=== PATIENT | male | born 1945 | race African-American/Black ===

== ENCOUNTER 2023-07-15 15:01 | Outpatient (AMB) | payer MEDICARE, OTHER, SELFPAY ==
[2023-07-15 15:05] VITALS: BP 112/74; PULSE 62; O2SAT 97; BMI 35.4
--- NOTE | 2023-07-15 15:05 | A.OFFVIS_ITS ---
Intake Vital Signs 07/15/23 15:05 Height 6 ft 2 in Weight 276 lb BMI 35.4 BP 112/74 Blood Pressure Location Lt brachial Position Sitting Pulse 62 Pulse Source Pulse Oximeter Pulse Oximetry (%) 97 Oxygen Delivery Method Room Air Intake Visit Reasons: Restrictive Lung Diesease Intake Note: pt is here today for breathing issues [employer] Driver Required: No Allergies acetaminophen [From Percocet] Allergy (Severe, Verified 07/15/23 15:10) hives oxycodone [From Percocet] Allergy (Severe, Verified 07/15/23 15:10) hives OSBALDO Inhibitors Adverse Reaction (Severe, Verified 07/15/23 15:10) Cough HPI HPI Comments History of Present Illness Details The patient is here for pulmonary evaluation. The patient is a 78-year-old gentleman known history of COPD in addition to restrictive lung disease. The patient has been followed closely by the [facility]. We do not have any other records at this time. The patient has been doing a little better overall. He was having hard time with the summer. He was using his Anoro inhaler but still having significant audible wheezing and coughing. Moderate severity. He did see his primary care doctor who added Flovent to his regimen and this has been very effective for him. His coughing has improved. Although, he still complains of dyspnea on exertion [id number] severity even with minimal activity. The patient also uses CPAP at nighttime. The CPAP therapy has been affecting beneficial. He does use it every night without any difficulties. Will sent a prescription for continued getting supplies through his [employer] company, [employer] so [employer]. In addition to this the patient was told that he has a problem with his right lung. Appears that his right lower lobe does not inflate. The patient is not clear of the etiology. He is not sure feels the diaphragmatic issue is the lung issue. Most likely sounds like that from diaphragmatic. Will go ahead and request PFTs and chest x-ray. The patient may benefit from a sniff study. Also if he has had any CT scans that will be helpful as well to review. The patient also on exam has a significant systolic ejection murmur radiating to the clavicle into the carotid. Therefore will go ahead and request a echocardiogram at this time. [facility] Medical History (Updated 07/18/23 @ 08:32 by Billy Harper MD) Dyspnea Murmur Asthma-COPD overlap syndrome Social History (Updated 07/15/23 @ 15:12 by Mckenna Miramontes Saeid) Patient Tobacco Use Status: Former Tobacco user Tobacco use type: Cigar Review of Systems Const Denies fever(s) Eyes Reports no additional complaints ENT Reports nasal congestion Card Denies chest pain and Reports dyspnea on exertion Resp Reports cough, Reports dyspnea on exertion and Reports wheezing GI Reports no additional complaints Musc Reports myalgias Skin/Breast Denies rash Neuro Reports no additional complaints Nate/Lymph Denies easy bruising Aller/Immun Reports wheezing Physical Exam Vital Signs: Last Vital Signs Pulse 62 07/15/23 15:05 BP 112/74 07/15/23 15:05 Pulse Ox 97 07/15/23 15:05 Oxygen Delivery Method Room Air 07/15/23 15:05 BMI result Body Mass Index 35.4 Const General: comfortable HEENT Head: Yes normocephalic Eyes General: appearance normal, both eyes and all related structures Neck Neck: Yes supple Chest Chest palpation & inspection: normal inspection of the chest Resp Effort & Inspection: normal respiratory effort and prolonged expiratory phase Auscultation: no rales, no rhonchi, no wheezes and diminished lung sounds Cardio Heart sounds: S1 normal heart sound present, S2 normal heart sound present and Murmur heart sound present GI Palpation (GI): Soft to palpation Skin General skin exam: no rashes or lesions noted Extrem General: No cyanosis Assessment & Plan Assessment & Plan (1) Asthma-COPD overlap syndrome: Code(s): J44.89 - Other specified chronic obstructive pulmonary disease (2) Murmur: Code(s): R01.1 - Cardiac murmur, unspecified (3) Dyspnea: Code(s): R06.00 - Dyspnea, unspecified Qualifiers: Dyspnea type: dyspnea on exertion Qualified Code(s): R06.09 - Other forms of dyspnea Plan Stop Anoro/flovent start Trelegy JOSE as needed PFTs CXR, ?sniff study ECHO F/U 6-8 weeks Orders: Orders XR chest 2V 07/15/23 J44.89 - Other specified chronic obstructive pulmonary disease CA echo transthoracic complete 07/15/23 R01.1 - Cardiac murmur, unspecified PFT pulmonary function test 07/15/23 J44.89 - Other specified chronic obstructive pulmonary disease Medications: New [id number]-[id number] 200-62.5-25 mcg (Trelegy Ellipta) 1 inh inhalation DAILY 30 days 60 ea 12RF Coding Level of Care Code New Pt Level 4 (05640) Diagnoses Asthma-COPD overlap syndrome J44.89 Murmur R01.1 Dyspnea on exertion R06.09 Dyspnea type: dyspnea on exertion Time Spent (min) 40
== END 2023-07-15 15:38 | disposition home or self-care (01) ==
PROVIDERS: PCP Internal Medicine; Referring Provider Internal Medicine; Visit Provider Hospitalist
DX: J44.89 Other specified chronic obstructive pulmonary disease (principal); R01.1 Cardiac murmur, unspecified; R06.09 Other forms of dyspnea
CPT/HCPCS: 99204

== ENCOUNTER → 2023-07-15 15:01 | Outpatient (BNVA) | payer MEDICARE, OTHER, SELFPAY | PROVIDERS: PCP Internal Medicine; Referring Provider Internal Medicine; Visit Provider Hospitalist | DX: J44.89 Other specified chronic obstructive pulmonary disease (principal); R06.09 Other forms of dyspnea; R01.1 Cardiac murmur, unspecified | CPT/HCPCS: 99202 ==

== ENCOUNTER → 2023-08-01 13:21 | Outpatient (REF) | payer MEDICARE, OTHER, SELFPAY ==
--- NOTE | 2023-08-01 13:30 | CA_ITS ---
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 The calculated ejection fraction is 51% by biplane method. - There is moderately increased left ventricular wall thickness. - There is severe calcification of the aortic valve. There is moderate aortic valve stenosis. Findings Procedure Information Contrast agent, definity, is being given per protocol without apparent complications. Left Ventricle Normal left ventricular cavity size. There is moderately increased left ventricular wall thickness. The left ventricular systolic function is mildly decreased. The calculated ejection fraction is 51% by biplane method. There is no evidence of regional wall motion abnormalities. Evidence suggests grade I (mild) diastolic dysfunction. Right Ventricle Normal right ventricular cavity size. There is normal right ventricular systolic function. Atria Both atria are normal in size. Aortic Valve There is severe calcification of the aortic valve. There is moderate aortic valve stenosis. The peak aortic velocity is 3.30 m/s with a calculated peak gradient of 44 mmHg. The mean gradient is 26 mmHg. The aortic valve area is 1.03 cm2. There is no aortic valve regurgitation. Mitral Valve The mitral valve appears normal. There is trace mitral valve regurgitation. There is no mitral valve stenosis. Pulmonic Valve The pulmonic valve is likely normal. Tricuspid Valve Normal tricuspid valve structure. There is mild tricuspid valve regurgitation. There is no evidence of pulmonary hypertension. Great Vessels The asc aorta is normal in size. Venous The inferior vena cava was not well visualized. The inferior vena cava is normal in size. Pericardium/Pleural There is no evidence of pericardial effusion. Prior Study Comparison No prior study available for comparison. Measurements 2D Linear Measurements IVSd: 1.31 0.6-0.9/0.6-1.0 cm LVIDd: 4.41 3.9-5.3/4.2-5.9 cm LVIDd Index: 1.76 2.4-3.2/2.2-3.1 cm/m2 LVIDs: 3.13 2.0-3.6 cm LVPWd: 1.34 0.7-1.1 cm LA Diam: 4.60 2.7-3.8/3.0-4.0 cm LAIDs Index: 1.84 1.5-2.3 cm/m2 LV Mass: 276.77 67-162/88-224 g LV Mass Index: 110.71 43-95/49-115 g/m2 LVOT Diam: 2.10 3.0+(-)1.3 cm 2D Systolic Function EF 4C: 58.00 >55% EF 2C: 42.90 >55% EF BiP: 50.80 >55% Mitral Valve MV Pk E: 0.83 MV PK A: 0.75 MV Decel Time: 273.00 E/A: 1.10 E'Lateral: 8.59 E'Medial: 4.35 E/E' Med: 19.10 E/E' Lat: 9.70 PHT: 80.00 MVA PHT: 2.75 Decel [place]: 3.04 Aortic Valve AoV Pk Bakari: 3.30 AoV Mn Bakari: 2.34 AoV VTI: 0.95 AoV Pk Grad: 44.00 Aov Mn Grad: 26.00 ERICK Cont.VTI: 1.03 LVOT LVOT Pk Bakari: 1.03 LVOT Mn Bakari: 0.70 LVOT VTI: 0.28 LVOT Pk Grad: 4.00 LVOT Mn Grad: 2.00 LVOT Diam: 2.10 LVOT Area: 3.46 Diastolic Function MV Pk E: 0.83 MV Pk A: 0.75 E/A: 1.10 E'Medial: 4.35 E/E' Med: 19.10 E' Laterial: 8.59 E/E' Lat: 9.70 Right Ventricle TAPSE (mm): 20.30 TVS' Bakari: 9.79 Tricuspid Valve TR Pk Bakari: 2.66 TR Pk Grad: 28.00 Great Vessels Aorta Sinus of Valsalva: 2.80 2.0-3.5 cm Ao Asc: 3.20 2.1-3.4 cm Pulmonary Valve PV Pk Bakari: 1.21 Peak PV Grad: 6.00 Updated in Other Vendor System with Status of Final Brent Welch MD electronically signed on 08/02/2023 11:18:57 AM with status of Final
== END ==
LOC: HO.CARD 13:21
PROVIDERS: PCP Internal Medicine; Visit Provider Hospitalist
DX: R01.1 Cardiac murmur, unspecified (principal)
CPT/HCPCS: 93306; Q9957

== ENCOUNTER → 2023-08-01 13:30 | Outpatient (BNV) | payer MEDICARE, OTHER, SELFPAY | PROVIDERS: PCP Internal Medicine; Visit Provider Internal Medicine | DX: I35.0 Nonrheumatic aortic (valve) stenosis (principal) | CPT/HCPCS: 93306 ==

== ENCOUNTER 2023-09-01 14:51 | Outpatient (REF) | payer MEDICARE, OTHER, SELFPAY ==
--- NOTE | 2023-09-01 15:25 | PFT_ITS ---
Flows: FEV1: 106 % of predicted at 2.89 L FVC: 101 % of predicted at 4.41 L FEV1/FVC: 66 % Bronchodilator response: Present in small to medium airways only Volumes: Total lung capacity: 106 % of predicted at 6.80 L Residual volume: 100 % of predicted at 2.45 L Slow vital capacity: 115 % of predicted at 4.35 L Expiratory reserve volume: 70 % of predicted at 0.75 L Diffusion capacity: Normal Impression: Mild obstructive ventilatory defect with bronchodilator response in small to medium airways only. MTDD
== END 2023-09-01 14:52 | disposition home or self-care (01) ==
LOC: HO.RESP 14:51
PROVIDERS: PCP Internal Medicine; Visit Provider Hospitalist
DX: J44.89 Other specified chronic obstructive pulmonary disease (principal)
CPT/HCPCS: 94010; 94727; 94729

== ENCOUNTER → 2023-09-01 15:25 | Outpatient (BNV) | payer MEDICARE, OTHER, SELFPAY | PROVIDERS: PCP Internal Medicine; Visit Provider Internal Medicine Pulmonary Disease | DX: J44.89 Other specified chronic obstructive pulmonary disease (principal) | CPT/HCPCS: 94060; 94727; 94729 ==

== ENCOUNTER 2023-09-20 15:22 | Outpatient (AMB) | payer MEDICARE, OTHER, SELFPAY ==
[2023-09-20 15:32] VITALS: PULSE 89; O2SAT 94; BMI 34.8
--- NOTE | 2023-09-20 15:32 | A.OFFVIS_ITS ---
Intake Vital Signs 09/20/23 15:32 Height 6 ft 2 in Weight 271 lb BMI 34.8 Pulse 89 Pulse Source Pulse Oximeter Pulse Oximetry (%) 94 Oxygen Delivery Method Room Air Intake Visit Reasons: Follow testing PFT, echo,Xray [employer] Operator Required: No Allergies acetaminophen [From Percocet] Allergy (Severe, Verified 09/20/23 15:33) hives oxycodone [From Percocet] Allergy (Severe, Verified 09/20/23 15:33) hives OSBALDO Inhibitors Adverse Reaction (Severe, Verified 09/20/23 15:33) Cough HPI HPI Comments History of Present Illness Details The patient is a 78-year-old gentleman known history of COPD in addition to restrictive lung disease. The patient has been followed closely by the [facility]. We do not have any other records at this time. The patient has been doing a little better overall. He was having hard time with the summer. He was using his Anoro inhaler but still having significant audible wheezing and coughing. Moderate severity. He did see his primary care doctor who added Flovent to his regimen and this has been very effective for him. His coughing has improved. Although, he still complains of dyspnea on exertion [id number] severity even with minimal activity. The patient also uses CPAP at nighttime. The CPAP therapy has been affecting beneficial. He does use it every night without any difficulties. Will sent a prescription for continued getting supplies through his [employer] company, [employer] so [employer]. In addition to this the patient was told that he has a problem with his right lung. Appears that his right lower lobe does not inflate. The patient is not clear of the etiology. He is not sure feels the diaphragmatic issue is the lung issue. Most likely sounds like that from diaphragmatic. Will go ahead and request PFTs and chest x-ray. The patient may benefit from a sniff study. Also if he has had any CT scans that will be helpful as well to review. The patient also on exam has a significant systolic ejection murmur radiating to the clavicle into the carotid. Therefore will go ahead and request a echocardiogram at this time. 09/20/2023 the patient is here for pulmona ry follow-up visit. He continues to have dyspnea on exertion. Moderate severity. Even with minimal activity. The patient did undergo pulmonary function studies which I personally viewed viewed. His total lung capacity decreased down to 44% predicted and also his diffusing capacity also significantly low. Likely a lot related to diaphragmatic injury. Although we will need to do a CT scan of the chest to better address the restrictive process. The patient also may benefit from a sniff study to assess for any diaphragmatic paralysis. Will look at the CAT scan 1st before ordering the sleeves study. The patient also had an echocardiogram for his murmur. It appears a as moderate aortic stenosis with a severely calcified aortic valve. In addition to that he does have evidence of moderate diastolic dysfunction and slight decreased EF of 49%. The patient does have a scheduled appointment with Cardiology back in October. During the visit we did go for 6 minutes walk testing the patient did desaturate down to 88% with activity. The patient was placed on the oxygen 2 L pulse any actually did well maintaining a pulse ox of 96% with activity and he was less breathless. I do believe specially while he is dealing with the valve issue in the restrictive lung disease and his underlying obstructive lung disease to go ahead and start him on oxygen to provide him with some relief of his work of breathing. The patient also has been using the CPAP at night which has been affecting beneficial. He gets [facility]. Therefore will request a conserving device to [facility] as well. The patient will need a small adapter in order to be able to use the oxygen while he sleeps. [facility] Medical History (Updated 09/20/23 @ 21:00 by Billy Harper MD) Chronic hypoxemic respiratory failure Chronic restrictive lung disease Aortic stenosis Dyspnea Murmur Asthma-COPD overlap syndrome Social History (Updated 07/15/23 @ 15:12 by Mckenna Miramontes Saeid) Patient Tobacco Use Status: Former Tobacco user Tobacco use type: Cigar Review of Systems Const Denies fever(s) Eyes Reports no additional complaints ENT Reports nasal congestion Card Denies chest pain and Reports dyspnea on exertion Resp Reports cough, Reports dyspnea on exertion and Reports wheezing GI Reports no additional complaints Musc Reports myalgias Skin/Breast Denies rash Neuro Reports no additional complaints Nate/Lymph Denies easy bruising Aller/Immun Reports wheezing Physical Exam Vital Signs: Last Vital Signs Pulse 89 09/20/23 15:32 Pulse Ox 94 09/20/23 15:32 Oxygen Delivery Method Room Air 09/20/23 15:32 BMI result Body Mass Index 34.8 Const General: comfortable HEENT Head: Yes normocephalic Eyes General: appearance normal, both eyes and all related structures Neck Neck: Yes supple Chest Chest palpation & inspection: normal inspection of the chest Resp Effort & Inspection: normal respiratory effort and prolonged expiratory phase Auscultation: no rales, no rhonchi, no wheezes and diminished lung sounds Cardio Heart sounds: S1 normal heart sound present, S2 normal heart sound present and Murmur heart sound present GI Palpation (GI): Soft to palpation Skin General skin exam: no rashes or lesions noted Extrem General: No cyanosis Office Procedures 6 Minute Walk Time:: 20:59 SPO2 % at rest: 95 Pulse at rest: 90 SPO2 % during excercise: 88 Pulse during excercise: 112 Distance in yards walked: 200 Xavi Score: 7 Supplemental Oxygen: once his pox dropped to 88%, he placed on oxygen 2L/pulse keeping pox 94% with activity [id number] - 6 Minute Walk Assessment & Plan Assessment & Plan (1) Asthma-COPD overlap syndrome: Code(s): J44.89 - Other specified chronic obstructive pulmonary disease (2) Dyspnea: Code(s): R06.00 - Dyspnea, unspecified Qualifiers: Dyspnea type: dyspnea on exertion Qualified Code(s): R06.09 - Other forms of dyspnea (3) Chronic restrictive lung disease: Code(s): J98.4 - Other disorders of lung (4) Chronic hypoxemic respiratory failure: Code(s): J96.11 - Chronic respiratory failure with hypoxia (5) Aortic stenosis: Code(s): I35.0 - Nonrheumatic aortic (valve) stenosis Qualifiers: Cardiac valve disease etiology: etiology unspecified Qualified Code(s): I35.0 - Nonrheumatic aortic (valve) stenosis Plan continue Trelegy JOSE as needed CT chest to assess restrictive lung disease Will benefit from a sniff study after his CT chest Diuresis as tolerated Start oxygen 2liters/pulse with activity ans should also use 2 Liters while sleeping with PAP therapy Awaiting Cardiology eval F/U 8-10 weeks Coding Level of Care Code Est Pt Level 5 (78708) Diagnoses Asthma-COPD overlap syndrome J44.89 Dyspnea on exertion R06.09 Dyspnea type: dyspnea on exertion Chronic restrictive lung disease J98.4 Chronic hypoxemic respiratory failure J96.11 Aortic valve stenosis, etiology of cardiac valve disease unspecified I35.0 Cardiac valve disease etiology: etiology unspecified CPT Codes Coding ([id number]) Time Spent (min) 35
[2023-09-20 20:59] VITALS: PULSE 90; O2SAT 95
== END 2023-09-20 16:09 | disposition home or self-care (01) ==
PROVIDERS: PCP Internal Medicine; Visit Provider Hospitalist
DX: J44.89 Other specified chronic obstructive pulmonary disease (principal); J98.4 Other disorders of lung; J96.11 Chronic respiratory failure with hypoxia; I35.0 Nonrheumatic aortic (valve) stenosis
CPT/HCPCS: 94618; 99214

== ENCOUNTER → 2023-09-20 15:22 | Outpatient (BNVA) | payer MEDICARE, OTHER, SELFPAY | PROVIDERS: PCP Internal Medicine; Visit Provider Hospitalist | DX: J44.89 Other specified chronic obstructive pulmonary disease (principal); J98.4 Other disorders of lung; J96.11 Chronic respiratory failure with hypoxia; I35.0 Nonrheumatic aortic (valve) stenosis | CPT/HCPCS: 94618; 99212 ==

== ENCOUNTER 2023-10-19 10:44 | Outpatient (AMB) | payer MEDICARE, OTHER, SELFPAY ==
--- NOTE | 2023-10-19 10:54 | A.OFFVIS_ITS ---
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/ Deandra PCP/ aortic stenosis Intake Note: New patient dx was being seen at [place] and with vascular Inspector Assemblies And Installations Required: No Truck Supervisor: Truck Supervisor Present Accompanied by: Spouse Allergies acetaminophen [From Percocet] Allergy (Severe, Verified 09/20/23 15:33) hives oxycodone [From Percocet] Allergy (Severe, Verified 09/20/23 15:33) hives OSBALDO Inhibitors Adverse Reaction (Severe, Verified 09/20/23 15:33) Cough Medication List - Last Reconciled 10/19/23 by Arnel Ames MD albuterol sulfate 90 mcg/actuation inhalation atorvastatin 40 mg PO DAILY bumetanide 1 mg PO Q OTHER DAY carvedilol 12.5 mg PO BID clonidine 1 patch topical QWEEK famotidine 20 mg PO BID oksezfzacif-jnhiorkov-ctkgsgnp 200-62.5-25 mcg (Trelegy Ellipta) 1 inh inhalation DAILY 30 days insulin aspart U-100 (Novolog U-100 Insulin aspart) subcut nifedipine ER 60 mg PO DAILY olmesartan 40 mg PO DAILY prednisone mg PO tramadol 50 mg PO Q6H PRN HPI HPI Comments History of Present Illness Details Thank you for referring Gilles in cardiology consultation today for management of progressively increasing shortness of breath. He has a pleasant 78-year-old male, accompanied by his who is a retired nurse. Patient has longstanding history of hypertension which has in the past been difficult control, COPD/asthma overlap syndrome. About 10 years ago he had symptoms of indigestion and burping and had gone to a medical coordinator pesticide use locally Dr. Huang at the time EKGs in the office he was referred right away to the hospital. Subsequent cardiac catheterization at that time had revealed 90% proximal LAD disease for which she underwent a drug-eluting stent. He also had 80% RCA paroxysmal disease as well as moderate circumflex disease which was left untreated. Since then he has not been followed by medical coordinator pesticide use more recently. Over the last 2 years he has been getting progressively increasing shortness of breath with exertion and was seen by research specialist at [place] and subsequently continued to have symptoms and was referred to Dr. Harper. He has been treated for asthma COPD overlap syndrome and is PFTs is suggestive of reduced pulmonary capacity as well as diffusion capacity. His medications have been optimized. He does have intermittent episode of wheezing although over the last couple of months his exertional shortness of breath as got significantly worsened would get shortness of breath just going from living room to the bathroom. With the last 2-3 weeks he is also noticed shortness of breath when he is laying down and also has notice intermittent weight gain of 5 lb. Patient has noticed some leg edema. Patient also has notice some indigestion- like symptoms similar to his prior unstable angina symptoms although is very vague about it. He denies any prolonged palpitations, lightheadedness, syncope. He has been taking Bumex 1 mg every other day for long time. Recently had been to renal specialist for his chronic kidney disease and noted his GFR to have reduced for unclear reason. thinks that this was related to some recent a cute illness. Patient also intermittently has high salt intake in his diet which causes blood pressure to rise but generally his blood pressure is less than systolic 130. PFS Medical History CAD (coronary artery disease) Chronic hypoxemic respiratory failure Chronic restrictive lung disease Aortic stenosis Dyspnea Murmur Asthma-COPD overlap syndrome Surgical History Stented coronary artery Social History Patient Tobacco Use Status: Former Tobacco user Tobacco use type: Cigar Review of Systems Const Reports no additional complaints Eyes Reports no additional complaints Card Reports leg edema, Denies lightheadedness, Denies dyspnea, Reports dyspnea on exertion, Reports orthopnea and Reports other (Indigestion like symptoms with activity) Resp Denies dyspnea and Reports dyspnea on exertion GI Reports no additional complaints Reports no additional complaints Musc Reports no additional complaints Skin/Breast Reports system reviewed and no additional complaints, except as documented Neuro Reports no additional complaints Psych Reports no additional complaints Physical Exam Vital Signs: Last Vital Signs Pulse 78 10/19/23 10:56 BP 122/80 10/19/23 10:56 BMI result Body Mass Index 35.9 Const General: cooperative, comfortable, no acute distress, alert and awake Nutritional Appearance: obese Orientation/consciousness: patient oriented x3 Limitations: no limitations HEENT Head: Yes normocephalic and Yes atraumatic Neck Neck: Yes trachea midline, Yes supple and Yes JVD Resp Effort & Inspection: normal respiratory effort Auscultation: no rales, wheezes (Occasional) and diminished lung sounds Cardio Jugular venous distension: JVD Palpation: normal PMI Rate: regular rate Rhythm: regular rhythm Heart sounds: S1 normal heart sound present, S2 normal heart sound present, no click, no gallops, Murmur heart sound present systolic late, decrescendo and crescendo and Other heart sounds present (S4 present) GI Inspection: Yes obesity Auscultation: normal bowel sounds Skin General skin exam: no rashes or lesions noted Neuro General: patient oriented x3 and no focal motor deficits Extrem General: No clubbing, No cyanosis and Yes edema Psych Appearance: grossly normal Office Procedures EKG Details: EKG shows normal sinus rhythm with first-degree AV block with right bundle- branch block and possible inferior Q-waves [id number], Complete Assessment & Plan Assessment & Plan (1) Decompensated heart failure: Code(s): I50.9 - Heart failure, unspecified Plan: Patient progressive symptoms of shortness of breath with shortness of breath with minimal exertion orthopnea and evidence of fluid overload on today's exam is suggestive of early decompensated congestive heart failure. Patient is not in respiratory distress when I spoke to him. We discussed about management of heart failure in details. Heart failure could be multifactorial related to LV diastolic dysfunction related hypertensive heart disease with underlying at least moderate could be underestimated and high likelihood of underlying progressive coronary artery disease. Clinically fluid overloaded and management of this was discussed. Complete avoidance of salt loading. His recent decrease in GFR may be due to decompensated heart failure and cardiorenal syndrome. I have advised him to increase his bumetanide to 1 mg daily. Daily weight monitoring was discussed. Need to obtain some baseline lab work today before starting increased therapy. This was discussed with him. Will also obtain a chest x-ray. Also I think he will benefit from addition of Jardiance 10 mg to his regimen for heart failure management. Will require ischemic workup and most likely benefit from cardiac catheterization to evaluate coronary anatomy as well as hemodynamics and severity of aortic stenosis although will like to improve his overall clinical condition prior to pursuing further aggressive management from that perspective. I also want to be mindful about his renal dysfunction and avoid superimposed contrast induced nephropathy. Will follow with him in 2 weeks time. If his symptoms worsen especially of heart failure is advised to come to the emergency room. Continue management of his COPD. (2) CAD (coronary artery disease): Code(s): I25.10 - Atherosclerotic heart disease of [place] coronary artery without angina pectoris Plan: CAD with prior LAD stenting about 10 years ago with residual disease of severe stenosis in RCA as well as moderate stenosis and circumflex. Highly likely that his recent symptoms of indigestion suggestive angina. I have advised him to avoid sudden strenuous activity. Continue aspirin therapy. Continue high- intensity statin therapy. Currently on carvedilol as well as nifedipine extended release. If he gets progressive symptoms of symptoms at rest of indigestion is advised to seek emergency care. Will require cardiac catheterization in the future. Will wait for his lab work. (3) Aortic stenosis: Code(s): I35.0 - Nonrheumatic aortic (valve) stenosis Qualifiers: Cardiac valve disease etiology: etiology unspecified Qualified Code(s): I35.0 - Nonrheumatic aortic (valve) stenosis Plan: Aortic stenosis which appears to be at least moderate by echocardiogram. Could be underestimated. Will require full hemodynamic evaluation in the future. Although if moderate is not responsible but contributing to his overall heart failure syndrome. Continue aggressive vascular risk factor modification. Greater than 50 minutes was spent in managing his complex care. Follow up in the clinic in 2 weeks Orders: Orders Basic Metabolic Panel Today I50.9 - Heart failure, unspecified B Type Natriuretic Peptide Today I50.9 - Heart failure, unspecified Magnesium Today I50.9 - Heart failure, unspecified XR chest 2V Today I50.9 - Heart failure, unspecified Medications: New empagliflozin (Jardiance) 10 mg PO DAILY 30 tabs 5RF Changed From bumetanide 1 mg PO Q OTHER DAY To bumetanide 1 mg PO DAILY Coding Level of Care Code New Pt Level 5 (70075) Diagnoses Decompensated heart failure I50.9 CAD (coronary artery disease) I25.10 Aortic valve stenosis, etiology of cardiac valve disease unspecified I35.0 Cardiac valve disease etiology: etiology unspecified CPT Codes EKG - CPT: 42820-[id number], Complete ([id number])
[2023-10-19 10:56] VITALS: BP 122/80; PULSE 78; BMI 35.9
== END 2023-10-19 11:50 | disposition home or self-care (01) ==
PROVIDERS: PCP Internal Medicine; Visit Provider Internal Medicine Cardiovascular Disease
DX: I50.9 Heart failure, unspecified (principal); I25.10 Atherosclerotic heart disease of native coronary artery without angina pectoris; I35.0 Nonrheumatic aortic (valve) stenosis
CPT/HCPCS: 93010; 99205

== ENCOUNTER 2023-10-19 10:44 | Outpatient (REF) | payer MEDICARE, OTHER, SELFPAY ==
--- NOTE | ~2023-10-19 | XR_ITS ---
EXAMINATION: XR CHEST CLINICAL INFORMATION: Heart failure COMPARISON: None available. TECHNIQUE: 2 views of the chest were obtained. FINDINGS: pulmonary vascularity. LUNGS: Bilateral vascular and interstitial prominence is seen. There is marked elevation of right hemidiaphragm causing compression atelectasis in the right lung base. No pneumothorax is seen. BONES: Bony skeleton is intact. XR/XR chest 2V IMPRESSION: 1. Findings consistent with pulmonary venous congestion. 2. Marked elevation of right hemidiaphragm causing compression atelectasis in the right lung base, compatible with diaphragmatic eventration or paralysis.
[2023-10-19 15:51] LABS: Anion Gap 14 (12-20); Blood Urea Nitrogen 19 mg/dL (9-16); Carbon Dioxide 24 mmol/L (22-29); Chloride 109 mmol/L (96-108); Estimated Glomerular Filt Rate 40; Glucose Random 81 mg/dL (60-115); Magnesium 2.1 mg/dL (1.6-2.6); Potassium 4.3 mmol/L (3.3-5.1); Sodium 143 mmol/L (135-145)
[2023-10-19 15:55] LABS: B Type Natriuretic Peptide 1517 pg/mL (<100)
== END 2023-10-19 10:45 | disposition home or self-care (01) ==
LOC: HO.LAB 10:44
PROVIDERS: PCP Internal Medicine; Visit Provider Internal Medicine Cardiovascular Disease
DX: I11.0 Hypertensive heart disease with heart failure (principal); I50.9 Heart failure, unspecified; I25.10 Atherosclerotic heart disease of native coronary artery without angina pectoris; I35.0 Nonrheumatic aortic (valve) stenosis; Z95.5 Presence of coronary angioplasty implant and graft
CPT/HCPCS: 36415; 71046; 80048; 83735; 83880; 93005; 99202

== ENCOUNTER 2023-11-04 11:57 | Outpatient (REF) | payer MEDICARE, OTHER, SELFPAY ==
[2023-11-04 13:37] LABS: B Type Natriuretic Peptide 289 pg/mL (<100)
[2023-11-04 13:56] LABS: Anion Gap 14 (12-20); Blood Urea Nitrogen 33 mg/dL (9-16); Carbon Dioxide 29 mmol/L (22-29); Chloride 99 mmol/L (96-108); Estimated Glomerular Filt Rate 28; Glucose Random 211 mg/dL (60-115); Potassium 4.5 mmol/L (3.3-5.1); Sodium 137 mmol/L (135-145)
== END 2023-11-04 11:58 | disposition home or self-care (01) ==
LOC: HO.LAB 11:57
PROVIDERS: PCP Internal Medicine; Visit Provider Internal Medicine Cardiovascular Disease
DX: I50.30 Unspecified diastolic (congestive) heart failure (principal); J96.11 Chronic respiratory failure with hypoxia; I25.10 Atherosclerotic heart disease of native coronary artery without angina pectoris; Z79.899 Other long term (current) drug therapy; Z79.4 Long term (current) use of insulin
CPT/HCPCS: 36415; 80048; 83880; 99212

== ENCOUNTER 2023-11-04 12:56 | Outpatient (AMB) | payer MEDICARE, OTHER, SELFPAY ==
--- NOTE | 2023-11-04 13:04 | A.OFFVIS_ITS ---
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 Present Accompanied by: Spouse Allergies acetaminophen [From Percocet] Allergy (Severe, Verified 09/20/23 15:33) hives oxycodone [From Percocet] Allergy (Severe, Verified 09/20/23 15:33) hives OSBALDO Inhibitors Adverse Reaction (Severe, Verified 09/20/23 15:33) Cough Medication List - Last Reconciled 11/04/23 by Arnel Ames MD albuterol sulfate 90 mcg/actuation inhalation atorvastatin 40 mg PO DAILY bumetanide 1 mg PO DAILY carvedilol 12.5 mg PO BID clonidine 1 patch topical QWEEK empagliflozin (Jardiance) 10 mg PO DAILY famotidine 20 mg PO BID cftjolocegf-bqdafbjcg-jqrmoghr 200-62.5-25 mcg (Trelegy Ellipta) 1 inh inhalation DAILY 30 days insulin aspart U-100 (Novolog U-100 Insulin aspart) subcut nifedipine ER 60 mg PO DAILY olmesartan 40 mg PO DAILY prednisone mg PO tramadol 50 mg PO Q6H PRN HPI HPI Comments History of Present Illness Details Gilles comes for follow-up, accompanied by his . He said he has breathing a lot better. Since I saw him 2 weeks ago he is lost about 13 lb with improved belly distension as well as normalized leg swelling. He also has improved shortness of breath with still gets short of breath walking but now is restricted because of his hips. He denies any orthopnea. Denies any chest pain, lightheadedness, syncope. Denies any palpitation, irregular heartbeat. Taking all his medications. BNP is down trended from 1500-289 PFSH Medical History (Updated 11/04/23 @ 13:43 by Arnel Ames MD) Decompensated heart failure CAD (coronary artery disease) Chronic hypoxemic respiratory failure Chronic restrictive lung disease Aortic stenosis Dyspnea Murmur Asthma-COPD overlap syndrome Surgical History Stented coronary artery Social History Patient Tobacco Use Status: Former Tobacco user Tobacco use type: Cigar Review of Systems Const Denies chills, Denies fatigue, Denies fever(s), Denies frequent falls, Denies weakness, Denies weight gain and Denies weight loss ENT Denies dizziness Card Denies chest pain, Denies leg edema, Denies lightheadedness, Denies palpitations, Denies dyspnea, Denies dyspnea on exertion, Denies orthopnea and Denies other (loss of consciousness) Resp Denies cough, Denies dyspnea and Denies dyspnea on exertion GI Denies hematochezia and Denies change in stool character Musc Denies abnormal gait, Denies muscle weakness, Denies numbness, Denies radiating pain into limb and Denies tingling Neuro Denies abnormal gait, Denies dizziness, Denies frequent falls, Denies numbness, Denies tingling and Denies weakness Endo Denies fatigue and Denies palpitations Physical Exam Vital Signs: Last Vital Signs Pulse 73 11/04/23 13:05 BP 122/70 11/04/23 13:05 BMI result Body Mass Index 34.2 Const General: cooperative, comfortable, no acute distress, alert and awake Nutritional Appearance: obese Orientation/consciousness: patient oriented x3 Limitations: no limitations HEENT Head: Yes normocephalic and Yes atraumatic Neck Neck: Yes trachea midline, Yes supple and Yes no JVD Resp Effort & Inspection: normal respiratory effort Auscultation: no rales, wheezes (Occasional) and diminished lung sounds Cardio Jugular venous distension: no JVD Palpation: normal PMI Rate: regular rate Rhythm: regular rhythm Heart sounds: S1 normal heart sound present, S2 normal heart sound present, no click, no gallops, Murmur heart sound present systolic late, decrescendo and crescendo and Other heart sounds present (S4 present) GI Auscultation: normal bowel sounds Skin General skin exam: no rashes or lesions noted Neuro General: patient oriented x3 and no focal motor deficits Extrem General: No clubbing, No cyanosis and No edema Psych Appearance: grossly normal Assessment & Plan Assessment & Plan (1) (HFpEF) heart failure with preserved ejection fraction: Code(s): I50.30 - Unspecified diastolic (congestive) heart failure Plan: Heart failure with preserved ejection fraction with improved congestive symptoms with diuretics. Continue current diuretic dose. Management of heart failure were discussed. Continue current Jardiance therapy. Cause for heart failure could be related to progressive coronary artery disease and/or significant aortic stenosis and/or hypertensive heart disease or combination of each. Would suggest him to undergo cardiac catheterization to further evaluate for coronary anatomy as well as hemodynamics. The risks, benefits, alternatives were discussed with him. He understands and agrees. Continue all his medications. Management of heart failure was discussed importance daily weight monitoring avoidance of salt loading was discussed. He understands agrees. Goals of therapy were discussed as well. Will follow up in the clinic after cardiac catheterization. Thank you for allowing me to partake in his care Coding Level of Care Code Est Pt Level 4 (75081) Diagnoses (HFpEF) heart failure with preserved ejection fraction I50.30
[2023-11-04 13:05] VITALS: BP 122/70; PULSE 73; BMI 34.2
== END 2023-11-04 14:09 | disposition home or self-care (01) ==
PROVIDERS: PCP Internal Medicine; Visit Provider Internal Medicine Cardiovascular Disease
DX: I50.30 Unspecified diastolic (congestive) heart failure (principal)
CPT/HCPCS: 99214

== ENCOUNTER 2023-11-15 11:42 | Outpatient (REF) | payer MEDICARE, OTHER, SELFPAY ==
[2023-11-15 12:09] LABS: Hematocrit 34.3 % (42.0-52.0); Hemoglobin 11.5 g/dl (14.0-18.0); Mean Corpuscular HGB Conc 33.5 g/dl (31.0-36.0); Mean Corpuscular Hemoglobin 30.5 pg (27.0-33.0); Mean Platelet Volume 10.1 fL (9.4-12.4); Platelet Count 170 X10*3/uL (160-400); Red Blood Count 3.77 X10*6/uL (4.60-5.80); Red Cell Distribution Width 12.6 % (11.0-16.0); White Blood Count 2.9 X10*3/uL (4.8-10.8)
[2023-11-15 12:28] LABS: Prothrombin Time 12.1 SEC (11.1-13.3)
[2023-11-15 12:38] LABS: Anion Gap 14 (12-20); Blood Urea Nitrogen 45 mg/dL (9-16); Calcium 9.2 mg/dL (8.4-10.2); Carbon Dioxide 29 mmol/L (22-29); Chloride 101 mmol/L (96-108); Estimated Glomerular Filt Rate 23; Glucose Random 165 mg/dL (60-115); Potassium 4.2 mmol/L (3.3-5.1); Sodium 140 mmol/L (135-145)
== END 2023-11-15 11:43 | disposition home or self-care (01) ==
LOC: HO.LAB 11:42
PROVIDERS: PCP Internal Medicine; Visit Provider Internal Medicine Cardiovascular Disease
DX: I50.30 Unspecified diastolic (congestive) heart failure (principal)
CPT/HCPCS: 36415; 80048; 85027; 85610

== ENCOUNTER 2023-11-24 11:15 | Outpatient (REF) | payer MEDICARE, OTHER, SELFPAY ==
[2023-11-24 12:26] LABS: B Type Natriuretic Peptide 193 pg/mL (<100)
[2023-11-24 12:29] LABS: Anion Gap 17 (12-20); Blood Urea Nitrogen 47 mg/dL (9-16); Calcium 9.1 mg/dL (8.4-10.2); Carbon Dioxide 25 mmol/L (22-29); Chloride 100 mmol/L (96-108); Estimated Glomerular Filt Rate 23; Glucose Random 266 mg/dL (60-115); Potassium 4.4 mmol/L (3.3-5.1); Sodium 138 mmol/L (135-145)
== END 2023-11-24 11:16 | disposition home or self-care (01) ==
LOC: HO.LAB 11:15
PROVIDERS: PCP Internal Medicine; Visit Provider Internal Medicine Cardiovascular Disease
DX: I50.30 Unspecified diastolic (congestive) heart failure (principal); I35.0 Nonrheumatic aortic (valve) stenosis
CPT/HCPCS: 36415; 80048; 83880

== ENCOUNTER 2023-11-29 15:22 | Outpatient (AMB) | payer MEDICARE, OTHER, SELFPAY ==
[2023-11-29 15:28] VITALS: BP 136/74; PULSE 69; O2SAT 97; BMI 34.5
--- NOTE | 2023-11-29 15:28 | MHC.OFFVIS ---
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 Associate Professor Of Biblical Studies: Associate Professor Of Biblical Studies offered & declined Allergies acetaminophen [From Percocet] Allergy (Severe, Verified 11/29/23 15:34) hives oxycodone [From Percocet] Allergy (Severe, Verified 11/29/23 15:34) hives OSBALDO Inhibitors Adverse Reaction (Severe, Verified 11/29/23 15:34) Cough Medication List - Last Reconciled 11/29/23 by Anastasiia Tavares LPN albuterol sulfate 90 mcg/actuation inhalation atorvastatin 40 mg PO DAILY bumetanide 1 mg PO DAILY carvedilol 12.5 mg PO BID clonidine 1 patch topical QWEEK empagliflozin (Jardiance) 10 mg PO DAILY famotidine 20 mg PO BID yfdymmfhxbb-gadlkvqwq-dugwqxhk 200-62.5-25 mcg (Trelegy Ellipta) 1 inh inhalation DAILY 30 days insulin aspart U-100 (Novolog U-100 Insulin aspart) subcut nifedipine ER 60 mg PO DAILY olmesartan 40 mg PO DAILY prednisone mg PO tramadol 50 mg PO Q6H PRN HPI HPI Comments History of Present Illness Details The patient is a 78-year-old gentleman known history of COPD in addition to restrictive lung disease. The patient has been followed closely by the [facility]. We do not have any other records at this time. The patient has been doing a little better overall. He was having hard time with the summer. He was using his Anoro inhaler but still having significant audible wheezing and coughing. Moderate severity. He did see his primary care doctor who added Flovent to his regimen and this has been very effective for him. His coughing has improved. Although, he still complains of dyspnea on exertion [id number] severity even with minimal activity. The patient also uses CPAP at nighttime. The CPAP therapy has been affecting beneficial. He does use it every night without any difficulties. Will sent a prescription for continued getting supplies through his [employer] company, [employer]. In addition to this the patient was told that he has a problem with his right lung. Appears that his right lower lobe does not inflate. The patient is not clear of the etiology. He is not sure feels the diaphragmatic issue is the lung issue. Most likely sounds like that from diaphragmatic. Will go ahead and request PFTs and chest x-ray. The patient may benefit from a sniff study. Also if he has had any CT scans that will be helpful as well to review. The patient also on exam has a significant systolic ejection murmur radiating to the clavicle into the carotid. Therefore will go ahead and request a echocardiogram at this time. 09/20/2023 the patient is here for pulmonary follow-up visit. He continues to have dyspnea on exertion. Moderate severity. Even with minimal activity. The patient did undergo pulmonary function studies which I personally viewed viewed. His total lung capacity decreased down to 44% predicted and also his diffusing capacity also significantly low. Likely a lot related to diaphragmatic injury. Although we will need to do a CT scan of the chest to better address the restrictive process. The patient also may benefit from a sniff study to assess for any diaphragmatic paralysis. Will look at the CAT scan 1st before ordering the sleeves study. The patient also had an echocardiogram for his murmur. It appears a as moderate aortic stenosis with a severely calcified aortic valve. In addition to that he does have evidence of moderate diastolic dysfunction and slight decreased EF of 49%. The patient does have a scheduled appointment with Cardiology back in October. During the visit we did go for 6 minutes walk testing the patient did desaturate down to 88% with activity. The patient was placed on the oxygen 2 L pulse any actually did well maintaining a pulse ox of 96% with activity and he was less breathless. I do believe specially while he is dealing with the valve issue in the restrictive lung disease and his underlying obstructive lung disease to go ahead and start him on oxygen to provide him with some relief of his work of breathing. The patient also has been using the CPAP at night which has been affecting beneficial. He gets [facility]. Therefore will request a conserving device to [facility] as well. The patient will need a small adapter in order to be able to use the oxygen while he sleeps. 11/29/2023 the patient is here for a pulmonary follow-up visit. The patient overall is doing much better. He follows closely with Cardiology. He diuresed significant amount of fluid out of his body and he is breathing a lot better. He has no longer having to use the oxygen with activity. He has been using the oxygen at nighttime while using the CPAP. The CPAP therapy continues to be affecting beneficial. He continues on the Trelegy inhaler. We did review his chest x-ray demonstrating a elevated hemidiaphragm. His chest x-ray is abnormal so therefore will request a CT scan of the chest to better address those findings. In the meantime continue working with Cardiology regarding his valvular disease. He was scheduled to undergo an angiogram but the problem is that his kidney functions are not doing well. He is following closely with Nephrology. Hopefully if the kidney function stabilizes he can have his catheterization. In the meantime we will continue him on the current respiratory therapy, Pap therapy and also oxygen therapy. [facility] Medical History (Updated 11/04/23 @ 13:43 by Arnel Ames MD) Decompensated heart failure CAD (coronary artery disease) Chronic hypoxemic respiratory failure Chronic restrictive lung disease Aortic stenosis Dyspnea Murmur Asthma-COPD overlap syndrome Surgical History Stented coronary artery Social History (Updated 11/29/23 @ 15:37 by Anastasiia Tavares LPN) Patient Tobacco Use Status: Former Tobacco user Tobacco use type: Cigar Review of Systems Const Denies fever(s) Eyes Reports no additional complaints ENT Reports nasal congestion Card Denies chest pain and Reports dyspnea on exertion Resp Reports cough, Reports dyspnea on exertion and Denies wheezing GI Reports no additional complaints Musc Reports myalgias Skin/Breast Denies rash Neuro Reports no additional complaints Nate/Lymph Denies easy bruising Aller/Immun Denies wheezing Physical Exam Vital Signs: Last Vital Signs Pulse 69 11/29/23 15:28 BP 136/74 11/29/23 15:28 Pulse Ox 97 11/29/23 15:28 Oxygen Delivery Method Room Air 11/29/23 15:28 BMI result Body Mass Index 34.5 Const General: comfortable HEENT Head: Yes normocephalic Eyes General: appearance normal, both eyes and all related structures Neck Neck: Yes supple Chest Chest palpation & inspection: normal inspection of the chest Resp Effort & Inspection: normal respiratory effort and prolonged expiratory phase Auscultation: no rales, no rhonchi, no wheezes and diminished lung sounds Cardio Heart sounds: S1 normal heart sound present, S2 normal heart sound present and Murmur heart sound present GI Palpation (GI): Soft to palpation Skin General skin exam: no rashes or lesions noted Extrem General: No cyanosis Assessment & Plan Assessment & Plan (1) Asthma-COPD overlap syndrome: Code(s): J44.89 - Other specified chronic obstructive pulmonary disease (2) Dyspnea: Code(s): R06.00 - Dyspnea, unspecified Qualifiers: Dyspnea type: dyspnea on exertion Qualified Code(s): R06.09 - Other forms of dyspnea (3) Chronic restrictive lung disease: Code(s): J98.4 - Other disorders of lung (4) Chronic hypoxemic respiratory failure: Code(s): J96.11 - Chronic respiratory failure with hypoxia (5) Aortic stenosis: Code(s): I35.0 - Nonrheumatic aortic (valve) stenosis Qualifiers: Cardiac valve disease etiology: etiology unspecified Qualified Code(s): I35.0 - Nonrheumatic aortic (valve) stenosis Plan continue Trelegy JOSE as needed CT chest to assess restrictive lung disease Will benefit from a sniff study after his CT chest Diuresis as tolerated continue oxygen 2liters/pulse with activity ans should also use 2 Liters while sleeping with PAP therapy F/U 4 months Orders: Orders CT chest wo IV con Today J98.4 - Other disorders of lung Coding Level of Care Code Est Pt Level 4 (49968) Diagnoses Asthma-COPD overlap syndrome J44.89 Dyspnea on exertion R06.09 Dyspnea type: dyspnea on exertion Chronic restrictive lung disease J98.4 Chronic hypoxemic respiratory failure J96.11 Aortic valve stenosis, etiology of cardiac valve disease unspecified I35.0 Cardiac valve disease etiology: etiology unspecified Time Spent (min) 17
== END 2023-11-29 15:58 | disposition home or self-care (01) ==
PROVIDERS: PCP Internal Medicine; Visit Provider Hospitalist
DX: J44.89 Other specified chronic obstructive pulmonary disease (principal); J98.4 Other disorders of lung; J96.11 Chronic respiratory failure with hypoxia; I35.0 Nonrheumatic aortic (valve) stenosis
CPT/HCPCS: 99214

== ENCOUNTER → 2023-11-29 15:22 | Outpatient (BNVA) | payer MEDICARE, OTHER, SELFPAY | PROVIDERS: PCP Internal Medicine; Visit Provider Hospitalist | DX: J44.89 Other specified chronic obstructive pulmonary disease (principal); J98.4 Other disorders of lung; J96.11 Chronic respiratory failure with hypoxia; I35.0 Nonrheumatic aortic (valve) stenosis; R06.09 Other forms of dyspnea | CPT/HCPCS: 99212 ==

== ENCOUNTER 2023-12-08 14:20 | Outpatient (AMB) | payer MEDICARE, OTHER, SELFPAY ==
[2023-12-08 14:32] VITALS: BP 150/67; PULSE 65; BMI 34.3
--- NOTE | 2023-12-08 14:32 | MHC.OFFVIS ---
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 Balance Wheel Required: No Mud Analysis Well Logging Operator: Mud Analysis Well Logging Operator Present Allergies acetaminophen [From Percocet] Allergy (Severe, Verified 12/08/23 14:35) hives oxycodone [From Percocet] Allergy (Severe, Verified 12/08/23 14:35) hives OSBALDO Inhibitors Adverse Reaction (Severe, Verified 12/08/23 14:35) Cough Medication List - Last Reconciled 12/08/23 by Marycarmen Dodson, METHODS SPECIALIST-C albuterol sulfate 90 mcg/actuation inhalation atorvastatin 40 mg PO DAILY bumetanide 1 mg PO DAILY carvedilol 12.5 mg PO BID clonidine 1 patch topical QWEEK empagliflozin (Jardiance) 10 mg PO DAILY famotidine 20 mg PO BID ehrzgqazahi-ldndumknr-pdcidfom 200-62.5-25 mcg (Trelegy Ellipta) 1 inh inhalation DAILY 30 days insulin aspart U-100 (Novolog U-100 Insulin aspart) subcut nifedipine ER 60 mg PO DAILY olmesartan 20 mg PO DAILY prednisone mg PO tramadol 50 mg PO Q6H PRN HPI Follow up post cardiac cath HPI Details Gilles is a 78-year-old male with past medical history of asthma/COPD overlap syndrome, aortic stenosis, heart failure with preserved EF, CAD and recent acute on chronic kidney disease who presents for follow-up. Today he reports that he has been feeling generally well since his last visit. He has some shortness of breath with exertional activities but this is not new or worse than prior. He states his abdominal size his gone down. His weight at home has been stable. No PND, orthopnea or edema. He has not having any chest discomfort at rest or with activity. No heart palpitations, lightheadedness, presyncope, syncope, falls. Taking all meds as directed. Did see Dr. Rodriguez's who for Nephrology. Dr. Rodriguez's reduced his olmesartan to half a tablet. He continues on Bumex at 1 mg daily. His is present. [facility] Medical History Decompensated heart failure CAD (coronary artery disease) Chronic hypoxemic respiratory failure Chronic restrictive lung disease Aortic stenosis Dyspnea Murmur Asthma-COPD overlap syndrome Surgical History Stented coronary artery Social History Patient Tobacco Use Status: Former Tobacco user Tobacco use type: Cigar Review of Systems Const All systems reviewed & are unremarkable except as noted in HPI and below ENT Reports dizziness Card Denies chest pain, Denies chest pain at rest, Denies chest pain with activity, Denies rapid heart rate, Denies pedal edema, Denies edema, Denies leg edema, Denies lightheadedness, Denies palpitations, Reports dyspnea, Reports dyspnea on exertion and Denies orthopnea Resp Denies cough, Reports dyspnea and Reports dyspnea on exertion GI Denies hematochezia and Denies change in stool character Musc Denies abnormal gait, Denies limited range of motion, Denies muscle cramps, Denies muscle weakness, Denies numbness, Denies radiating pain into limb, Denies stiffness and Denies tingling Neuro Denies abnormal gait, Reports dizziness, Denies numbness and Denies tingling Endo Denies palpitations Physical Exam Vital Signs: Last Vital Signs Pulse 65 12/08/23 14:32 BP 150/67 H 12/08/23 14:32 BMI result Body Mass Index 34.3 Const General: cooperative, healthy appearing, comfortable and no acute distress Orientation/consciousness: patient oriented x3 Neck Neck: Yes normal visual inspection Resp Effort & Inspection: normal respiratory effort Auscultation: clear to auscultation bilaterally, no rales, no rhonchi and no wheezes Cardio Jugular venous distension: no JVD Rate: regular rate Rhythm: regular rhythm Heart sounds: S1 normal heart sound present, S2 normal heart sound present, no murmurs and no rubs Neuro General: patient oriented x3 Extrem General: Yes normal to inspection and No no pedal edema Psych Appearance: grossly normal Mental Status: mental status grossly normal Speech and movement: Normal speech and movement present Assessment & Plan Assessment & Plan (1) (HFpEF) heart failure with preserved ejection fraction: Code(s): I50.30 - Unspecified diastolic (congestive) heart failure Plan: History of heart failure with preserved EF. He has a known history of CAD with cardiac catheterization in 2013 showing 90% mid LAD stenosis, stent was placed, residual moderate left circumflex and 80% RCA stenosis. Echocardiogram done 08/01/2023 shows EF 51%, moderate increase in the LV wall thickness, moderate aortic stenosis. The cause for his recent decompensated heart failure could be related to progressive coronary artery disease and or significant aortic stenosis and or hypertensive heart disease or combination of each. On last visit it was suggested he undergo cardiac catheterization however the procedure was placed on hold due to a rise in his kidney function. Last known creatinine 2.69 which is a rise from prior values. He has seen Dr. Rodriguez for Nephrology evaluation. Will work on obtaining that note. Patient also states that he did have a repeat kidney test done at [facility]. Will try to obtain those labs. He continues on Bumex 1 mg daily. On exam today does not appear fluid overloaded. Says he does have some shortness of breath with exertion but it is improved from prior reports. His blood pressure is elevated today however states that she checks it at home and it is normally well controlled. Will have him continue on current medications at this time. Once requested information has been reviewed then timing of cardiac catheterization can be determined. Risks of cardiac catheterization including LUZ MARIA reviewed with him in detail and he states understanding. Informed him that all precautions will be taken to protect kidneys including using the least amount of dye possible and giving IV fluids to help flush dye from his system. He is agreeable to proceed with cardiac catheterization knowing this risk. Follow-up in our office will be 2 weeks post procedure. (2) CAD (coronary artery disease): Code(s): I25.10 - Atherosclerotic heart disease of [place] coronary artery without angina pectoris Plan: Known history of LAD stent and residual left circumflex and RCA stenosis from 2013. At present he denies chest discomfort but he does have some shortness of breath with activity and recent decompensated heart failure. Continue atorvastatin and carvedilol. I do not see aspirin on his list. Unclear if stopped by Nephrology. Will review Dr. Rodriguez's note when available. (3) Acute kidney injury superimposed on chronic kidney disease: Code(s): N17.9 - Acute kidney failure, unspecified; N18.9 - Chronic kidney disease, unspecified Plan: As above (4) Aortic stenosis: Code(s): I35.0 - Nonrheumatic aortic (valve) stenosis Qualifiers: Cardiac valve disease etiology: etiology unspecified Qualified Code(s): I35.0 - Nonrheumatic aortic (valve) stenosis Plan: Moderate aortic stenosis. Murmur noted on examination Plan Time spent on chart review, documentation, interview and assessment Coding Level of Care Code Est Pt Level 4 (08319) Diagnoses (HFpEF) heart failure with preserved ejection fraction I50.30 CAD (coronary artery disease) I25.10 Acute kidney injury superimposed on chronic kidney disease N17.9; N18.9 Aortic valve stenosis, etiology of cardiac valve disease unspecified I35.0 Cardiac valve disease etiology: etiology unspecified Time Spent (min) 28
== END 2023-12-08 15:09 | disposition home or self-care (01) ==
PROVIDERS: PCP Internal Medicine; Visit Provider Nurse Practitioner Family
DX: I50.30 Unspecified diastolic (congestive) heart failure (principal); I25.10 Atherosclerotic heart disease of native coronary artery without angina pectoris; N17.9 Acute kidney failure, unspecified; N18.9 Chronic kidney disease, unspecified; I35.0 Nonrheumatic aortic (valve) stenosis
CPT/HCPCS: 99214

== ENCOUNTER → 2023-12-08 14:20 | Outpatient (BNVA) | payer MEDICARE, OTHER, SELFPAY | PROVIDERS: PCP Internal Medicine; Visit Provider Nurse Practitioner Family | DX: I50.30 Unspecified diastolic (congestive) heart failure (principal); I25.10 Atherosclerotic heart disease of native coronary artery without angina pectoris; I35.0 Nonrheumatic aortic (valve) stenosis; N18.9 Chronic kidney disease, unspecified; N17.9 Acute kidney failure, unspecified | CPT/HCPCS: 99212 ==

== ENCOUNTER 2023-12-29 15:10 | Outpatient (REF) | payer MEDICARE, OTHER, SELFPAY ==
[2023-12-29 15:29] LABS: Hematocrit 28.5 % (42.0-52.0); Mean Corpuscular HGB Conc 35.1 g/dl (31.0-36.0); Mean Corpuscular Hemoglobin 32.5 pg (27.0-33.0); Mean Corpuscular Volume 92.5 fL (80.0-98.0); Mean Platelet Volume 9.3 fL (9.4-12.4); Platelet Count 109 X10*3/uL (160-400); Red Blood Count 3.08 X10*6/uL (4.60-5.80); Red Cell Distribution Width 13.9 % (11.0-16.0)
[2023-12-29 15:35] LABS: Prothrombin Time 11.9 SEC (11.1-13.3)
[2023-12-29 15:47] LABS: White Blood Count 1.5 X10*3/uL (4.8-10.8)
[2023-12-29 15:48] LABS: B Type Natriuretic Peptide 256 pg/mL (<100)
[2023-12-29 15:49] LABS: Anion Gap 12 (12-20); Blood Urea Nitrogen 40 mg/dL (9-16); Calcium 8.9 mg/dL (8.4-10.2); Carbon Dioxide 27 mmol/L (22-29); Chloride 105 mmol/L (96-108); Estimated Glomerular Filt Rate 28; Glucose Random 188 mg/dL (60-115); Potassium 4.1 mmol/L (3.3-5.1); Sodium 140 mmol/L (135-145)
== END 2023-12-29 15:11 | disposition home or self-care (01) ==
LOC: HO.LAB 15:10
PROVIDERS: Absent Provider Internal Medicine Cardiovascular Disease; PCP Internal Medicine; Visit Provider Nurse Practitioner Family
DX: I11.0 Hypertensive heart disease with heart failure (principal); I50.30 Unspecified diastolic (congestive) heart failure; I25.10 Atherosclerotic heart disease of native coronary artery without angina pectoris; I35.0 Nonrheumatic aortic (valve) stenosis; N18.9 Chronic kidney disease, unspecified; N17.9 Acute kidney failure, unspecified; J96.11 Chronic respiratory failure with hypoxia
CPT/HCPCS: 36415; 80048; 83880; 85027; 85610

== ENCOUNTER 2024-01-20 14:12 | Outpatient (REF) | payer MEDICARE, OTHER, SELFPAY ==
--- NOTE | ~2024-01-20 | CT_ITS ---
EXAMINATION: CT CHEST WITHOUT CONTRAST CLINICAL INFORMATION: COPD. COMPARISON: Chest radiographs dated 10/19/2023. TECHNIQUE: Multidetector volumetric CT imaging of the chest was done. Axial MIP volume rendering provided. Sagittal and coronal reformatted images were obtained. This CT examination was performed using dose optimization techniques as appropriate, variously including the following: *Automated exposure control *Adjustment of mA and/or kV according to patient size (this includes techniques or standardized protocols for targeted exams where dose is matched to indication/reason for exam; i.e. extremities or head) *Use of iterative reconstruction technique DLP: 699 mGy-cm FINDINGS: TAWER: Again, there is marked elevation of the right hemidiaphragm. LUNGS: There is mild paraseptal predominant emphysematous change. A benign, calcified granuloma is seen laterally within the right middle lobe (7:81). Within the posterior basal segment of the right lower lobe (7:103), a 5 mm noncalcified nodule is seen. There are a few further tiny 1-2 mm noncalcified and calcified right lung nodules, best appreciated on the MIP sequence. Medially within the left upper lobe (7:73), a 9 mm noncalcified nodule is seen, with adjacent groundglass halo. Within the anterior segment of the left upper lobe (7:98), a 6 mm ovoid, noncalcified nodule is seen, with adjacent groundglass halo. There are a few further tiny 1-2 mm noncalcified left lung nodules, best appreciated on the MIP sequence. There is a focus of scar/subsegmental atelectasis seen within the anterior and lateral basal segments of the right lower lobe, in apposition to two calcified right hilar lymph nodes. There is associated focal right base bronchiectasis. No mass or infiltrate is seen. There is no generalized increase in peripheral septal markings. There is no generalized small airway thickening. The central airways appear patent MEDIASTINUM: The thyroid is unremarkable. There is moderately severe atherosclerotic calcification of the thoracic aorta, including the annulus, and of the great vessel origins. No thoracic aortic aneurysm is seen. Their are calcified right hilar lymph nodes, consistent with chronic granulomatous disease. There are further shotty, nonpathologically enlarged mediastinal lymph nodes. No sizable mediastinal or hilar noncalcified lymphadenopathy is seen. CORONARY ARTERY CALCIFICATION: Moderately severe. PLEURA: There is no pleural effusion. No pleural mass or thickening. AXILLA: No lymphadenopathy. There is moderate bilateral gynecomastia. UPPER ABDOMEN: The included portion of the adrenal gland is unremarkable. There are incompletely covered bilateral retroperitoneal masses, with the included portion of the right measuring 7.8 x 4.2 cm and the left 7.7 x 5.5 cm. The right has a Hounsfield value of 7.0 units, and the left a Hounsfield value -37.3 units. OSSEOUS STRUCTURES: There is multi-level marked lower cervical and thoracic degenerative disc disease and endplate arthropathy, with an appearance suggesting possible DISH (diffuse idiopathic skeletal hyperostosis). No acute or aggressive osseous finding is noted. CT/CT chest wo IV con IMPRESSION: 1. There are bilateral lung nodules, as detailed, the largest within the right upper lobe measuring 9 mm, with adjacent groundglass halo. According to the UPDATED 2017 Fleischner Society recommendations, the advised follow-up imaging for multiple solid nodules, the largest measuring 6 mm or greater, is: LOW RISK PATIENT: CT at 3-6 months, then consider CT at 18-24 months. HIGH RISK PATIENT: CT at 3-6 months, then at 18-24 months. 2. There is mild paraseptal emphysematous change. 3. There is a focus of linear scar/subsegmental atelectasis at the right base, with associated bronchiectasis and no focal obstructing airway lesion. 4. There are calcified right hilar lymph nodes, consistent with chronic granulomatous disease. No sizable mediastinal or hilar lymphadenopathy is seen. There is no pleural effusion. 5. There is moderately severe coronary artery atherosclerotic calcification. 6. There is moderate bilateral gynecomastia. 7. 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 No acute or aggressive osseous finding is noted. 8. 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 Extramedullary hematopoiesis is a further differential consideration. Recommend further evaluation with dedicated CT of the abdomen and pelvis. Fleischner guidelines were followed.
== END 2024-01-20 14:13 | disposition home or self-care (01) ==
LOC: HO.CT 14:12
PROVIDERS: PCP Internal Medicine; Visit Provider Hospitalist
DX: J98.4 Other disorders of lung (principal)
CPT/HCPCS: 71250

== ENCOUNTER 2024-01-26 10:46 | Outpatient (REF) | payer MEDICARE, OTHER, SELFPAY ==
[2024-01-26 11:59] LABS: Hematocrit 24.4 % (42.0-52.0); Hemoglobin 8.5 g/dl (14.0-18.0); Lymphocytes Absolute Auto 0.6 X10*3/uL (1.2-4.9); Lymphocytes Percent Auto 77.8 % (20-40); MANUAL DIFF FLAG SCAN; Mean Corpuscular HGB Conc 34.8 g/dl (31.0-36.0); Mean Corpuscular Volume 97.6 fL (80.0-98.0); Mean Platelet Volume 9.8 fL (9.4-12.4); Monocytes Percent Auto 2.5 % (2-11); Neutrophils Absolute Auto 0.2 x10*3/uL (2.0-8.3); Neutrophils Percent Auto 19.7 % (45-73); Red Cell Distribution Width 14.6 % (11.0-16.0); SCAN SMEAR FLAG 1
[2024-01-26 12:03] LABS: Prothrombin Time 12.1 SEC (11.1-13.3)
[2024-01-26 12:50] LABS: Anion Gap 16 (12-20); Blood Urea Nitrogen 43 mg/dL (9-16); Carbon Dioxide 25 mmol/L (22-29); Chloride 104 mmol/L (96-108); Estimated Glomerular Filt Rate 30; Glucose Random 205 mg/dL (60-115); Sodium 141 mmol/L (135-145)
[2024-01-26 13:10] LABS: Platelet Count 75 X10*3/uL (160-400)
[2024-01-26 13:12] LABS: SLIDE REVIEW VERIFIED
[2024-01-26 15:14] LABS: White Blood Count 0.8 X10*3/uL (4.8-10.8)
== END 2024-01-26 10:47 | disposition home or self-care (01) ==
LOC: HO.LAB 10:46
PROVIDERS: PCP Internal Medicine; Visit Provider Nurse Practitioner Family
DX: I50.30 Unspecified diastolic (congestive) heart failure (principal); N17.9 Acute kidney failure, unspecified; N18.9 Chronic kidney disease, unspecified; I25.10 Atherosclerotic heart disease of native coronary artery without angina pectoris
CPT/HCPCS: 36415; 80048; 85025; 85610

== ENCOUNTER → 2024-01-30 10:37 | Outpatient (BNV) | payer MEDICARE, OTHER, SELFPAY | PROVIDERS: PCP Internal Medicine; Visit Provider Internal Medicine | DX: D61.818 Other pancytopenia (principal) | CPT/HCPCS: 99205 ==

== ENCOUNTER 2024-01-31 16:34 | Outpatient (REF) | payer MEDICARE, OTHER, SELFPAY ==
--- NOTE | ~2024-01-31 | CT_ITS ---
EXAMINATION: CT ABDOMEN AND PELVIS WITHOUT CONTRAST CLINICAL INFORMATION: Pancytopenia, bilateral retroperitoneal mass lesions seen on CT scan COMPARISON: CT scan of chest on 01/20/2024 TECHNIQUE: Multidetector volumetric imaging was performed from the superior aspect of the liver through the pubic symphysis. Sagittal and coronal reformatted images were obtained on the technologist's workstation. This CT examination was performed using dose optimization techniques as appropriate, variously including the following: *Automated exposure control *Adjustment of mA and/or kV according to patient size (this includes techniques or standardized protocols for targeted exams where dose is matched to indication/reason for exam; i.e. extremities or head) *Use of iterative reconstruction technique DLP: 988.1 mGy-cm FINDINGS: CT ABDOMEN LUNG BASES: A 3 mm nodule is seen in lateral right upper lobe posterior segment, series 5 image #7. There is marked asymmetric elevation of right hemidiaphragm causing compression atelectasis of the right lower lobe. LIVER: Liver appears to be grossly normal on noncontrast enhanced images. GALLBLADDER AND BILIARY TREE: Gallbladder appears unremarkable without calcified stones. Common bile duct is not dilated. SPLEEN: The spleen is normal in size without with multiple tiny calcifications in the splenic body up to 0.5 cm in diameter. Accessory spleen is seen medial to the lower anterior splenic body measuring 1.5 cm in diameter. At a lower level, an oval shaped nodule isodense with splenic parenchyma is seen medial to the lipomatous mass lesion directly beneath the left adrenal gland, at upper L2 level, measuring 2.7 x 2.0 cm in size, may represent additional accessory spleen. PANCREAS: The pancreas appears unremarkable on noncontrast enhanced images. ADRENAL GLANDS: Adrenal glands are normal in size without focal lesion bilaterally. KIDNEYS: The visualized bilateral kidneys are normal in size without stones. Nonspecific bilateral perinephric soft tissue stranding is present. No caliectasis or dilated pelvis is seen. No dilated ureters are found. BOWELS: There is no abnormal dilatation of the large and small bowel loops. Multiple diverticula are seen in the ascending, right transverse and descending colon without inflammatory changes. RETROPERITONEUM: At upper L2 level, a heterogeneous partially lipomatous mass lesion is seen in left lateral retroperitoneum, measuring 5.9 cm in AP diameter, 4.2 cm in width, 2.8 cm in vertical height, about the left upper renal pole. From upper T12 to mid L2 level, a large left medial retroperitoneal heterogeneous markedly lipomatous mass lesion is seen, measuring 8.1 cm in AP diameter, 5.8 cm in width, 7.7 cm in vertical height. At the same level, a right medial retroperitoneal partially lipomatous mass lesion with major solid component is seen, measuring 7.8 cm in oblique AP length, 5.2 cm in oblique width, 9.8 cm in vertical height. Or these lesions are from bilateral kidneys by normal fat planes. BLOOD VESSELS: Abdominal aorta is normal in size, with thick circumferential atherosclerotic calcifications. ABDOMINAL WALL: Medium-sized umbilical hernia containing partial circumference of air distended redundant sigmoid colon and mesenteric fat is seen. PERITONEUM: There is no ascites. There were no abdominal peritoneal inflammatory changes seen. No free peritoneal air was seen. BONES: Multilevel thoracic spine large sharp syndesmophytes are again visualized. Advanced L5-S1 degenerative lumbar disc disease with vacuum disc phenomenon is also seen. No fracture or dislocation. No focal bone lesion diagnostic of metastatic disease could be seen in the lumbar region. CT PELVIS URINARY BLADDER: The visualized urinary bladder is normal, filled with urine. No intraluminal stones are found. No abnormally dilated distal ureters are seen. BOWELS: There is no abnormal dilatation of the large and small bowel loops. Normal appendix is seen projecting medial and inferior to the cecum. Numerous diverticula are seen in the ascending, descending and sigmoid colon without inflammatory changes. GENITAL ORGANS: Seminal vesicles and Prostate gland are surgically absent. Multiple surgical clips are seen in the pelvis. Bilateral penile low-density penile implants are present, connected to prevesical fluid filled reservoir. LYMPH NODES: No abnormally enlarged iliac or inguinal lymph nodes are seen. PERITONEUM: No inflammatory changes, ascites or free peritoneal air are found in the pelvis. Small left inguinal hernia containing mesenteric fat is present. BONES: No fracture or dislocation. No focal bone lesion diagnostic of metastatic disease could be seen in the pelvis. CT/CT abdomen pelvis wo IV con IMPRESSION: 1. Bilateral retroperitoneal partially lipomatous mass lesions are seen, from the kidneys and adrenal glands, as described above. Differential diagnosis include extramedullary hematopoiesis, myelolipoma, liposarcoma and teratomas. 2. Medium-sized umbilical hernia containing partial circumference of air distended redundant sigmoid colon and mesenteric fat. 3. Small left inguinal hernia containing mesenteric fat. 4. Colonic diverticulosis without inflammatory changes. 5. Status post prostatectomy and seminal vesicle resection. 6. Bilateral penile low-density penile implants are present, connected to prevesical fluid filled reservoir. 7. A 3 mm right upper lobe pulmonary nodule is seen. Additional nodules are reported on CT scan of chest. Please refer to report on CT scan of chest for Follow-up recommendation according to Fleischner Society guidelines. 8. Marked asymmetric elevation of right hemidiaphragm causing compression atelectasis of the right lower lobe. 9. Multiple tiny calcifications in the splenic body are seen. Fleischner guidelines were followed.
== END 2024-01-31 16:35 | disposition home or self-care (01) ==
LOC: HO.CT 16:34
PROVIDERS: PCP Internal Medicine; Visit Provider Internal Medicine
DX: K42.9 Umbilical hernia without obstruction or gangrene (principal); M51.37 Other intervertebral disc degeneration, lumbosacral region; R91.1 Solitary pulmonary nodule; J98.11 Atelectasis
CPT/HCPCS: 74176

== ENCOUNTER 2024-02-07 08:44 | Day surgery (SDC) | payer MEDICARE, OTHER, SELFPAY ==
--- NOTE | ~2024-02-07 | CT_ITS ---
Pancytopenia PROCEDURES: 1. Limited preprocedure CT of the pelvis. Permanent images saved in PACS. 2. 11 g bone marrow core biopsy of the right posterior iliac spine 3. 11 g bone marrow aspirate of the right posterior iliac spine CLINICIANS: Mikey Kumar PA-C MEDICATIONS: -Versed 1 mg, Fentanyl 50 mcg, and lidocaine 1% 10 mL SQ -Antibiotics: None -For additional details, please see nursing flowsheet. COMPLICATIONS: None ESTIMATED BLOOD LOSS: < 5 ml CONTRAST: None SPECIMENS: 11 g core placed in formalin. Bone marrow aspirate placed in EDTA and sodium heparin tubes MODERATE SEDATION TIME: 18 min PROCEDURE NOTE: The procedure, risks, benefits, and alternatives were carefully explained to the patient and written informed consent was obtained. The patient was placed prone on the CT table. A timeout was performed. A limited CT of the pelvis was performed to localize posterior iliac spine and choose appropriate needle entry and trajectory. The patient was prepped and draped in usual sterile fashion. The skin, subcutaneous tissues, and periosteum were anesthetized with lidocaine. Under CT guidance, an 11-gauge bone marrow biopsy needle was advanced into the posterior iliac spine, with the tip positioned slightly cephalad. An 11-gauge core biopsy of the bone marrow was performed and was placed in formalin. Next, the 11-gauge bone marrow biopsy needle was then advanced into the posterior iliac spine, under CT guidance, with the tip positioned slightly caudal. A bone marrow aspirate was performed. The specimen was placed in the provided EDTA and sodium heparin tubes. The needle was removed. A dry dressing was applied and secured with Tegaderm. There were no immediate complications. The patient was stable after the procedure and was transferred to the post anesthesia care unit. The procedure was done under moderate sedation with a dedicated nurse for monitoring of vital signs. CT/CT biopsy asp core bone marrow Impression: CT-guided bone marrow biopsy and aspirate This procedure was performed by Mikey Kumar PA-C and supervised by Dr. Treadwell.
[2024-02-07 09:31] VITALS: BMI 33.9
[2024-02-07 09:43] LABS: Hematocrit 24.3 % (42.0-52.0); Hemoglobin 8.6 g/dl (14.0-18.0); Lymphocytes Absolute Auto 0.6 X10*3/uL (1.2-4.9); Lymphocytes Percent Auto 74.4 % (20-40); MANUAL DIFF FLAG SCAN; Mean Corpuscular HGB Conc 35.4 g/dl (31.0-36.0); Mean Corpuscular Hemoglobin 35.7 pg (27.0-33.0); Mean Corpuscular Volume 100.8 fL (80.0-98.0); Mean Platelet Volume 9.9 fL (9.4-12.4); Monocytes Percent Auto 3.7 % (2-11); Neutrophils Absolute Auto 0.2 x10*3/uL (2.0-8.3); Neutrophils Percent Auto 21.9 % (45-73); Red Blood Count 2.41 X10*6/uL (4.60-5.80); Red Cell Distribution Width 14.8 % (11.0-16.0); SCAN SMEAR FLAG 1
[2024-02-07 09:52] LABS: Platelet Count 74 X10*3/uL (160-400); White Blood Count 0.8 X10*3/uL (4.8-10.8)
[2024-02-07 10:01] LABS: Glucose, Whole Blood 143 mg/dL (60-115)
--- NOTE | 2024-02-07 10:03 | PC.NURSE ---
Patient in preop. WBC results 0.8. Dr. Salazar and Brady Kumar made aware. No new orders. Per Dr. Salazar, He probably has a hematological problem that's why we are doing the bone marrow bx .
[2024-02-07 10:11] LABS: SLIDE REVIEW VERIFIED
--- NOTE | 2024-02-07 10:24 | MHC.SHP ---
Pre-Procedural Eval Section A - 24 Hr Update-Section A only Date of Service: 02/07/24 Section B - Complete if H&P > 30 days Chief Complaint: Bone Marrow, pancytopenia Details of Present Illness: 78 y/o man with pancytopenia Relevant Family History (Specify if Yes): No Present Medications: see Short Stay Collaborative assessment Medical History: Significant History History of Previous Operations: No relevant previous surgery Allergies: Allergies Allergy/AdvReac Type Severity Reaction Status Date / Time acetaminophen [From Percocet] Allergy Severe hives Verified 02/07/24 09:31 oxycodone [From Percocet] Allergy Severe hives Verified 02/07/24 09:31 OSBALDO Inhibitors AdvReac Severe Cough Verified 02/07/24 09:31 Review of Systems Sugical H&P ROS: Negative: Cardiovascular, Respiratory and Gastrointestinal Exam Surgical H&P Exam: Normal: Heart, Normal: Lungs, Normal: Skin and Normal: Neurological and Not Evaluated: HEENT Plan I have reviewed the history and physical and performed a pertinent physical examination on my patient. No changes have occurred unless specified. CT bon marrow biopsy Time Spent With Patient Time: Total time managing care of this patient today ____ minutes.
[2024-02-07 11:10] VITALS: BP 110/47; PULSE 74; RESP 14; TEMP 36.2; O2SAT 99
[2024-02-07 11:25] VITALS: BP 138/68; PULSE 76; RESP 16; TEMP 36.3; O2SAT 98
[2024-02-07] MEDS: Lidocaine HCl 1 % MPF 30 ML VIAL 15 ML SUBCUT (11:27)
[2024-02-07 11:34] LABS: Bone Marrow SEE SEPARATE REPORT
== END 2024-02-07 12:05 | disposition home or self-care (01) ==
PROVIDERS: Pathology Anatomic Pathology & Clinical Pathology; Physician Assistant Surgical; Radiology Vascular & Interventional Radiology; PCP Internal Medicine; Visit Provider Internal Medicine
PROC: (CPT 38221; principal; 2024-02-07 10:30)
DX: D61.818 Other pancytopenia (principal); C92.40 Acute promyelocytic leukemia, not having achieved remission; E11.22 Type 2 diabetes mellitus with diabetic chronic kidney disease; N18.9 Chronic kidney disease, unspecified; D64.9 Anemia, unspecified; M10.9 Gout, unspecified; Z79.4 Long term (current) use of insulin; Z79.84 Long term (current) use of oral hypoglycemic drugs; Z79.899 Other long term (current) drug therapy; Z85.46 Personal history of malignant neoplasm of prostate; Z87.891 Personal history of nicotine dependence
CPT/HCPCS: 36415; 38222; 82947; 85025; 88184; 88185; 88237; 88264; 88280; 88305; 88311; 88313; 88341; 88342; 88374; 99152; J2250; J2310; J3010

== ENCOUNTER → 2024-02-07 10:24 | Outpatient (BNV) | payer MEDICARE, OTHER, SELFPAY | PROVIDERS: PCP Internal Medicine; Visit Provider Physician Assistant Surgical | DX: D61.818 Other pancytopenia (principal) | CPT/HCPCS: 38222; 77012; 99152 ==

== ENCOUNTER → 2024-03-13 23:59 | Outpatient (BNV) | payer MEDICARE, OTHER, SELFPAY | PROVIDERS: PCP Internal Medicine; Visit Provider Internal Medicine Cardiovascular Disease | DX: I20.89 Other forms of angina pectoris (principal) | CPT/HCPCS: 93458; 93571; 99152 ==

== ENCOUNTER → 2024-03-15 23:59 | Outpatient (BNV) | payer MEDICARE, OTHER, SELFPAY | PROVIDERS: PCP Internal Medicine; Visit Provider Internal Medicine Cardiovascular Disease | DX: I50.30 Unspecified diastolic (congestive) heart failure (principal); I25.118 Atherosclerotic heart disease of native coronary artery with other forms of angina pectoris | CPT/HCPCS: 92928; 92978; 92979; 93456; 99152 ==